=== PATIENT | female | born 1950 | race African-American/Black ===

== ENCOUNTER → 2020-09-23 11:45 | Outpatient (BNVA) | payer MEDICARE, MEDICAID, SELFPAY | PROVIDERS: PCP Internal Medicine; Referring Provider Internal Medicine; Visit Provider Internal Medicine | DX: E04.2 Nontoxic multinodular goiter (principal) | CPT/HCPCS: Q3014 ==

== ENCOUNTER → 2020-11-30 13:29 | Outpatient (BNVA) | payer MEDICARE, MEDICAID, SELFPAY | PROVIDERS: PCP Internal Medicine; Visit Provider Internal Medicine | DX: Z76.89 Persons encountering health services in other specified circumstances (principal) | CPT/HCPCS: Q3014 ==

== ENCOUNTER 2021-01-04 08:51 | Outpatient (REF) | payer MEDICARE, MEDICAID, SELFPAY ==
--- NOTE | ~2021-01-04 | US_ITS ---
EXAMINATION: US THYROID CLINICAL INFORMATION: Nontoxic multinodular goiter. COMPARISON: Ultrasound-guided thyroid biopsy 07/19/2018. Benign results per patient TECHNIQUE: Linear transducer paiz-scale and color Doppler examination with attention to the region of the thyroid. FINDINGS: SIZE: Measurements of the thyroid lobes and nodules are given in sagittal, anteroposterior and transverse dimensions respectively. Right Thyroid Lobe: 4.4 x 2.5 x 2.5 cm, volume 14.2 mL. Parenchyma: The gland echotexture is heterogeneous. Thyroid vascularity is increased. Left Thyroid Lobe: 4.3 x 1.5 x 1.3 cm, volume 4.3 mL. Parenchyma: The gland echotexture is homogeneous. Thyroid vascularity is normal. Isthmus: 0.3 cm in maximum AP dimension. Estimated total number of nodules greater than or equal to 1 cm: 1. Asset Protection Manager nodules are described as follows: 1. Location: Right mid/lower pole. Size: 3.0 x 2.1 x 2.4 cm, volume 7.9 mL. Nodule characteristics: Composition: Solid (2). Echogenicity: Isoechoic (1). Shape: Not taller than wide (0). Margins: Smooth (0). Echogenic Foci: None (0). ACR TI-RADS total points: 3 ACR TI-RADS category: 3 2. Location: Isthmus. Size: 0.8 x 0.4 x 0.7 cm, volume 0.1 mL. Nodule characteristics: Composition: Solid (2). Echogenicity: Hypoechoic (2). Shape: Not taller than wide (0). Margins: Smooth (0). Echogenic Foci: None (0). ACR TI-RADS total points: 4 ACR TI-RADS category: 4 NODES: No lymphadenopathy is seen in the tissue surrounding the thyroid gland. US/US thyroid IMPRESSION: 1. Solid nodule, right mid pole; previously biopsied in 2018 and was benign. Recommend continued follow up. 2. Spongiform nodule in the isthmus, likely benign, measuring 0.8 cm. 3. Small cystic areas with scattered tiny echogenic calcifications seen in both upper poles of the thyroid gland. Recommend continued ultrasound follow-up. ACR TI-RADS RECOMMENDATION REFERENCE: Ultrasound-guided fine-needle aspiration, followup ultrasound, no further follow up. * TR1 (0 point) and TR 2 (2 points): No FNA or follow up * TR3 (3 points): FNA if more than or equal to 2.5 cm in maximum dimension, followup ultrasound in 1, 3 and 5 years if 1.5 to 2.4 cm in maximum dimension. * TR4 (4-6 points): FNA if more than or equal to 1.5 cm in maximum dimension, followup ultrasound in 1, 2, 3 and 5 years if 1 to 1.4 cm in maximum dimension. * TR5 (more than or equal to 7 points): FNA if more than or equal to 1 cm in maximum dimension, followup ultrasound every year for 5 years if 0.5 to 0.9 cm in maximum dimension. * TR3, TR4 or TR5 nodules that are below the size threshold for follow up receive no follow up.
== END 2021-01-04 08:52 | disposition home or self-care (01) ==
LOC: HO.US 08:51
PROVIDERS: Visit Provider Internal Medicine
DX: E04.2 Nontoxic multinodular goiter (principal)
CPT/HCPCS: 76536

== ENCOUNTER → 2021-02-01 15:21 | Outpatient (BNVA) | payer MEDICARE, MEDICAID, SELFPAY | PROVIDERS: PCP Internal Medicine; Visit Provider Internal Medicine | DX: Z13.89 Encounter for screening for other disorder (principal) | CPT/HCPCS: Q3014 ==

== ENCOUNTER 2022-10-17 09:01 | Outpatient (REF) | payer MEDICARE, MEDICAID, SELFPAY ==
--- NOTE | ~2022-10-17 | US_ITS ---
EXAMINATION: US THYROID CLINICAL INFORMATION: Nontoxic multinodular goiter. COMPARISON: Ultrasound thyroid 01/04/2021. US-guided thyroid biopsy 07/19/2018. TECHNIQUE: Linear transducer grayscale and color Doppler examination with attention to the region of the thyroid. FINDINGS: SIZE: Measurements of the thyroid lobes and nodules are given in sagittal, anteroposterior and transverse dimensions respectively. Right Thyroid Lobe: 5.0 x 1.9 x 2.6 cm, volume 13.2 mL. Previously 4.4 x 2.5 x 2.5 cm, volume 14.2 mL. Parenchyma: The gland echotexture is heterogeneous. Thyroid vascularity is normal. Left Thyroid Lobe: 4.5 x 1.7 x 1.2 cm, volume 4.6 mL. Previously 4.3 x 1.5 x 1.3 cm, volume 4.3 mL. Parenchyma: The gland echotexture is heterogeneous. Thyroid vascularity is normal. Isthmus: 0.4 cm in maximum AP dimension. Previously 0.3 cm. Estimated total number of nodules greater than or equal to 1 cm: 2. Hair Or Beauty Salon Assistant nodules are described as follows: 1. Location: Right mid. Size: 2.7 x 1.9 x 2.9 cm, volume 7.9 mL. Previously: 3.0 x 2.1 x 2.4 cm, volume 7.9 mL. Nodule characteristics: Composition: Solid (2). Echogenicity: Isoechoic (1). Shape: Not taller than wide (0). Margins: Smooth (0). Echogenic Foci: None (0). ACR TI-RADS total points: 3 Previous: 3 ACR TI-RADS category: 3 Previous: 3 Significant change in size (>/= 20% in 2 dimensions and minimal increase of 2 mm or 50% or greater increase in volume): None. Change in features: None. Change in ACR TI-RADS risk category: No change. 2. Location: Isthmus. Size: 0.8 x 0.4 x 0.7 cm, volume 0.1 mL. Previously: 0.8 x 0.4 x 0.7 cm, volume 0.1 mL. Nodule characteristics: Composition: Solid (2). Echogenicity: Isoechoic (1). Shape: Not taller than wide (0). Margins: Smooth (0). Echogenic Foci: None (0). ACR TI-RADS total points: 3 Previous: 4 ACR TI-RADS category: 3 Previous: 4 Significant change in size (>/= 20% in 2 dimensions and minimal increase of 2 mm or 50% or greater increase in volume): None. Change in features: None. Change in ACR TI-RADS risk category: No change. 3. Location: Left mid. Size: 1.1 x 0.7 x 0.6 cm, volume 0.3 mL. Previously: Not documented on the previous study. Nodule characteristics: Composition: Spongiform (0). Echogenicity: Anechoic (0). Shape: Not taller than wide (0). Margins: Smooth (0). Echogenic Foci: None (0). ACR TI-RADS total points: 0 ACR TI-RADS category: 1 4. Location: Left superior. Size: 0.4 x 0.3 x 0.5 cm, volume 0.03 mL. Previously: Not documented on the previous study. Nodule characteristics: Composition: Cystic(0). ACR TI-RADS total points: 0 ACR TI-RADS category: 1 5. Location: Left superior. Size: 0.6 x 0.4 x 0.3 cm, volume 0.03 mL. Previously: Not documented on the previous study. Nodule characteristics: Composition: Cystic(0). ACR TI-RADS total points: 0 ACR TI-RADS category: 1 NODES: No lymphadenopathy is seen in the tissue surrounding the thyroid gland. US/US thyroid IMPRESSION: Heterogeneous thyroid gland with significantly enlarged left lobe. Large right midpole nodule is stable. The isthmus nodule is stable as well. There are a few new nodules in the left lobe. Recommend followup as per recommendations below. ACR TI-RADS RECOMMENDATION REFERENCE: Ultrasound-guided fine-needle aspiration, followup ultrasound, no further follow up. * TR1 (0 point) and TR 2 (2 points): No FNA or follow up. * TR3 (3 points): FNA if more than or equal to 2.5 cm in maximum dimension, followup ultrasound in 1, 3 and 5 years if 1.5 to 2.4 cm in maximum dimension. * TR4 (4-6 points): FNA if more than or equal to 1.5 cm in maximum dimension, followup ultrasound in 1, 2, 3 and 5 years if 1 to 1.4 cm in maximum dimension. * TR5 (more than or equal to 7 points): FNA if more than or equal to 1 cm in maximum dimension, followup ultrasound every year for 5 years if 0.5 to 0.9 cm in maximum dimension. * TR3, TR4 or TR5 nodules that are below the size threshold for followup receive no follow up.
[2022-10-17 10:57] LABS: Thyroid Stimulating Hormone 2.39 uIU/mL (0.32-4.0)
[2022-10-17 11:40] LABS: Free T4 (Free Thyroxine) 0.99 ng/dL (0.71-1.85)
== END 2022-10-17 09:02 | disposition home or self-care (01) ==
LOC: HO.US 09:01
PROVIDERS: Visit Provider Internal Medicine
DX: E04.2 Nontoxic multinodular goiter (principal)
CPT/HCPCS: 36415; 76536; 84439; 84443

== ENCOUNTER → 2022-10-26 09:01 | Outpatient (BNVA) | payer MEDICARE, MEDICAID, SELFPAY | PROVIDERS: PCP Internal Medicine; Visit Provider Internal Medicine | DX: E04.2 Nontoxic multinodular goiter (principal) | CPT/HCPCS: 99212 ==

== ENCOUNTER 2023-02-16 08:58 | Outpatient (REF) | payer MEDICARE, MEDICAID, SELFPAY ==
--- NOTE | 2023-02-16 09:24 | P.BOP_ITS ---
Brief Operative Note Date of Service: 02/16/23 Pre-op diagnosis: Multinodular Thyroid Procedure: EXAMINATION: US THYROID CLINICAL INFORMATION: Multinodular Thyroid COMPARISON: Prior TECHNIQUE: Linear transducer paiz-scale and color Doppler examination with attention to the region of the thyroid. FINDINGS: SIZE: Measurements of the thyroid lobes and nodules are given in sagittal, anteroposterior and transverse dimensions respectively. Right Thyroid Lobe: 4.4 x 2.2 x 2.7 cm, volume 13.7 mL. Parenchyma: The gland echotexture is heterogenous. Thyroid vascularity is normal. Left Thyroid Lobe: 3.8 x 1.4 x 1.4 cm, volume 3.9 mL. Parenchyma: The gland echotexture is heterogenous. Thyroid vascularity is normal. Isthmus: 0.5 cm in maximum AP dimension. RIGHT THYROID LOBE: There is one nodule. 1) Right Mid Pole:2.7 x 2.7 x 1.8 cm Predominantly solid, isoechoic. Smooth margins. No microcalcifications. LEFT THYROID LOBE: There are 0 nodules. The left lobe appears heterogenous, and what was read as a new 1.1 cm left lobe nodule on her prior ultrasound is solely an area of heterogeneity. Isthmus: 1) 0.7 cm Isoechoic to slightly hypoechoic, predominantly solid. Smooth margins with no microcalcifications. NODES: No lymphadenopathy is seen in the tissue surrounding the thyroid gland. Surgeon: Odalys Kasper, DO Was an Shipping And Receiving Weigher used for this Procedure?: No Estimated blood loss (mL): 0
== END 2023-02-16 08:59 | disposition home or self-care (01) ==
LOC: HO.US 08:58
PROVIDERS: PCP Internal Medicine; Visit Provider Internal Medicine
DX: E04.2 Nontoxic multinodular goiter (principal)
CPT/HCPCS: 76536

== ENCOUNTER → 2023-03-02 12:26 | Outpatient (BNVA) | payer MEDICARE, MEDICAID, SELFPAY | PROVIDERS: PCP Family Medicine; Visit Provider Internal Medicine | DX: E04.2 Nontoxic multinodular goiter (principal) | CPT/HCPCS: 99212 ==

== ENCOUNTER 2024-02-20 10:32 | Outpatient (REF) | payer MEDICARE, MEDICAID, SELFPAY ==
--- NOTE | ~2024-02-20 | US_ITS ---
EXAMINATION: US THYROID CLINICAL INFORMATION: Nontoxic multinodular goiter. COMPARISON: Ultrasound soft tissue head/neck thyroid dated 10/17/2022 and 01/04/2021. TECHNIQUE: Linear transducer grayscale and color Doppler examination with attention to the region of the thyroid. FINDINGS: SIZE: Measurements of the thyroid lobes and nodules are given in sagittal, anteroposterior and transverse dimensions respectively. Right Thyroid Lobe: 5.0 x 2.1 x 2.5 cm, volume 13.7 mL. Previously 5.0 x 1.9 x 2.6 cm, volume 13.2 mL. Parenchyma: The gland echotexture is homogeneous. Thyroid vascularity is normal. Left Thyroid Lobe: 3.9 x 1.5 x 1.2 cm, volume 3.6 mL. Previously 4.5 x 1.7 x 1.2 cm, volume 4.6 mL. Parenchyma: The gland echotexture is homogeneous. Thyroid vascularity is normal. Isthmus: 0.6 cm in maximum AP dimension. Previously 0.4 cm. Estimated total number of nodules greater than or equal to 1 cm: 2. Artillery Meteorological Man nodules are described as follows: 1. Location: Left isthmus. Size: 0.9 x 0.4 x 0.8 cm, volume 0.15 mL. Previously: 0.8 x 0.4 x 0.7 cm, volume 0.1 mL. Nodule characteristics: Composition: Solid (2). Echogenicity: Hypoechoic (2). Shape: Not taller than wide (0). Margins: Smooth (0). Echogenic Foci: Macrocalcifications (1). ACR TI-RADS total points: 5. Previous: 3. ACR TI-RADS category: 4. Previous: 3. Significant change in size (>/= 20% in 2 dimensions and minimal increase of 2 mm or 50% or greater increase in volume): Yes Change in features: Yes Change in ACR TI-RADS risk category: Yes 2. Location: Right mid/inferior. Size: 2.4 x 1.8 x 2.8 cm, volume 6.6 mL. Previously: 2.7 x 1.9 x 2.9 cm, volume 7.9 mL. Nodule characteristics: Composition: Solid/almost completely solid (2). Echogenicity: Isoechoic (1). Shape: Not taller than wide (0). Margins: Smooth (0). Echogenic Foci: None (0). ACR TI-RADS total points: 3. Previous: 3. ACR TI-RADS category: 3. Previous: 3. Significant change in size (>/= 20% in 2 dimensions and minimal increase of 2 mm or 50% or greater increase in volume): No Change in features: No Change in ACR TI-RADS risk category: No 3. Location: Left mid. Size: 1.0 x 1.0 x 0.8 cm, volume 0.4 mL. Previously: 1.1 x 0.7 x 0.6 cm, volume 0.3 mL. Nodule characteristics: Composition: Spongiform (0). Echogenicity: Anechoic (0). Shape: Not taller than wide (0). Margins: Smooth (0). Echogenic Foci: None (0). ACR TI-RADS total points: 0. Previous: 0. ACR TI-RADS category: 1. Previous: 1. Significant change in size (>/= 20% in 2 dimensions and minimal increase of 2 mm or 50% or greater increase in volume): No Change in features: No Change in ACR TI-RADS risk category: No NODES: No lymphadenopathy is seen in the tissue surrounding the thyroid gland. US/US thyroid IMPRESSION: 2.8 cm right [id number] TR3 thyroid nodule has not increased in size and meets criteria for biopsy. Correlation with prior biopsy results recommended to determine further management. ACR TI-RADS RECOMMENDATION REFERENCE: Ultrasound-guided fine-needle aspiration, follow up ultrasound, no further followup. * TR1 (0 point) and TR2 (2 points): No FNA or followup. * TR3 (3 points): FNA if more than or equal to 2.5 cm in maximum dimension, follow up ultrasound in 1, 3 and 5 years if 1.5 to 2.4 cm in maximum dimension. * TR4 (4-6 points): FNA if more than or equal to 1.5 cm in maximum dimension, follow up ultrasound in 1, 2, 3 and 5 years if 1 to 1.4 cm in maximum dimension. * TR5 (more than or equal to 7 points): FNA if more than or equal to 1 cm in maximum dimension, follow up ultrasound every year for 5 years if 0.5 to 0.9 cm in maximum dimension. * TR3, TR4 or TR5 nodules that are below the size threshold for follow up receive no followup.
== END 2024-02-20 10:33 | disposition home or self-care (01) ==
LOC: HO.US 10:32
PROVIDERS: PCP Family Medicine; Visit Provider Internal Medicine Endocrinology, Diabetes & Metabolism
DX: E04.2 Nontoxic multinodular goiter (principal)
CPT/HCPCS: 76536

== ENCOUNTER 2024-09-17 12:34 | Outpatient (AMB) | payer MEDICARE, MEDICAID, SELFPAY ==
[2024-09-17 12:34] VITALS: BP 118/78; PULSE 84; BMI 27.2
--- NOTE | 2024-09-17 12:34 | A.OFFVIS_ITS ---
Vital Signs 09/17/24 12:34 Height 5 ft 2 in Weight 148 lb 12.992 oz BMI 27.2 BP 118/78 Blood Pressure Location Rt brachial Position Sitting Pulse 84 Pulse Source Palpation Intake Visit Reasons: Thyroid Nodule-confirmed Intake Note: Patient present today for Thyroid Nodule office visit. 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 Accompanied by: Self / Same As Patient Allergies No Known Allergies Allergy (Verified 09/17/24 12:37) Medication List - Last Reconciled 09/17/24 by Tamara Rubio MD aspirin (Adult Low Dose Aspirin) 81 mg PO DAILY atorvastatin 80 mg PO DAILY blood sugar diagnostic As directed bupropion HCl XL 150 mg PO DAILY carvedilol 25 mg PO BID clopidogrel 75 mg PO DAILY docusate sodium 100 mg PO DAILY dulaglutide 0.75 mg subcut QWEEK folic acid 0.4 mg PO DAILY hydralazine 50 mg PO TID ibuprofen 600 mg PO TID PRN lancets As directed metformin ER 500 mg PO BID pantoprazole 40 mg PO DAILY prednisone 20 mg PO BID HPI Comments Details: 73 YO F who is seen in F/U for multinodular thyroid. Prior HPI She was previously followed by Sandra Lowe, and did have a FNA completed of a R mid to lower pole 2.7 cm nodule 07/19/18 with benign cytology. She was then followed by Dr. Cm. Repeat US October 2022 reveals a new nodule measuring 1.1 cm in the LMP. Dr. Cm repeated her US herself 02/16/2023 which revealed her thyroid to be unchanged from prior, with redemonstration of a RMP 2.7 cm thyroid nodule. What was measured as a 1.1 cm nodule within the LMP was solely an area of heterogeneity. Most recent thyroid ultrasound done in February 2024, I reviewed the images myself which shows stable size of the right 2.8 cm mid lobe nodule, as well as stable size of the left mid lobe 1.1 cm nodule. Other subcentimeter nodules also remained stable. She reports feeling well today and has no complaints. Denies any symptoms of hyper or hypothyroidism. Denies any history of head or neck irradiation. Denies any family history of thyroid cancer. Physical exam General: sitting comfortably in no acute distress HEENT: normocephalic/atraumatic, moist oral mucosa Neck: supple, symmetrical, palpable 2 cm right sided nodule Cardiac: normal heart sounds Pulm: normal breath sounds B/L, no added breath sounds Abd: not distended, no tenderness Extremities: no edema, no signs of myxedema Neuro: AAO x3, Speech: normal, no facial droop, moving all 4 extremities Imaging US THYROID 02/20/24 CLINICAL INFORMATION: Nontoxic multinodular goiter. COMPARISON: Ultrasound soft tissue head/neck thyroid dated 10/17/2022 and 01/04/2021. TECHNIQUE: Linear transducer grayscale and color Doppler examination with attention to the region of the thyroid. FINDINGS: SIZE: Measurements of the thyroid lobes and nodules are given in sagittal, anteroposterior and transverse dimensions respectively. Right Thyroid Lobe: 5.0 x 2.1 x 2.5 cm, volume 13.7 mL. Previously 5.0 x 1.9 x 2.6 cm, volume 13.2 mL. Parenchyma: The gland echotexture is homogeneous. Thyroid vascularity is normal. Left Thyroid Lobe: 3.9 x 1.5 x 1.2 cm, volume 3.6 mL. Previously 4.5 x 1.7 x 1.2 cm, volume 4.6 mL. Parenchyma: The gland echotexture is homogeneous. Thyroid vascularity is normal. Isthmus: 0.6 cm in maximum AP dimension. Previously 0.4 cm. Estimated total number of nodules greater than or equal to 1 cm: 2. Green Feed Attendant nodules are described as follows: 1. Location: Left isthmus. Size: 0.9 x 0.4 x 0.8 cm, volume 0.15 mL. Previously: 0.8 x 0.4 x 0.7 cm, volume 0.1 mL. Nodule characteristics: Composition: Solid (2). Echogenicity: Hypoechoic (2). Shape: Not taller than wide (0). Margins: Smooth (0). Echogenic Foci: Macrocalcifications (1). ACR TI-RADS total points: 5. Previous: 3. ACR TI-RADS category: 4. Previous: 3. Significant change in size (>/= 20% in 2 dimensions and minimal increase of 2 mm or 50% or greater increase in volume): Yes Change in features: Yes Change in ACR TI-RADS risk category: Yes 2. Location: Right mid/inferior. Size: 2.4 x 1.8 x 2.8 cm, volume 6.6 mL. Previously: 2.7 x 1.9 x 2.9 cm, volume 7.9 mL. Nodule characteristics: Composition: Solid/almost completely solid (2). Echogenicity: Isoechoic (1). Shape: Not taller than wide (0). Margins: Smooth (0). Echogenic Foci: None (0). ACR TI-RADS total points: 3. Previous: 3. ACR TI-RADS category: 3. Previous: 3. Significant change in size (>/= 20% in 2 dimensions and minimal increase of 2 mm or 50% or greater increase in volume): No Change in features: No Change in ACR TI-RADS risk category: No 3. Location: Left mid. Size: 1.0 x 1.0 x 0.8 cm, volume 0.4 mL. Previously: 1.1 x 0.7 x 0.6 cm, volume 0.3 mL. Nodule characteristics: Composition: Spongiform (0). Echogenicity: Anechoic (0). Shape: Not taller than wide (0). Margins: Smooth (0). Echogenic Foci: None (0). ACR TI-RADS total points: 0. Previous: 0. ACR TI-RADS category: 1. Previous: 1. Significant change in size (>/= 20% in 2 dimensions and minimal increase of 2 mm or 50% or greater increase in volume): No Change in features: No Change in ACR TI-RADS risk category: No NODES: No lymphadenopathy is seen in the tissue surrounding the thyroid gland. US/US thyroid IMPRESSION: 2.8 cm right [id number] TR3 thyroid nodule has not increased in size and meets criteria for biopsy. Correlation with prior biopsy results recommended to determine further management. Thyroid US: 10/17/2022 Right Thyroid Lobe: 5.0 x 1.9 x 2.6 cm, volume 13.2 mL. Previously 4.4 x 2.5 x 2.5 cm, volume 14.2 mL. Parenchyma: The gland echotexture is heterogeneous. Thyroid vascularity is normal. Left Thyroid Lobe: 4.5 x 1.7 x 1.2 cm, volume 4.6 mL. Previously 4.3 x 1.5 x 1.3 cm, volume 4.3 mL. Parenchyma: The gland echotexture is heterogeneous. Thyroid vascularity is normal. Isthmus: 0.4 cm in maximum AP dimension. Previously 0.3 cm. Estimated total number of nodules greater than or equal to 1 cm: 2. Green Feed Attendant nodules are described as follows: 1.? Location: Right mid. ?? ? Size: 2.7 x 1.9 x 2.9 cm, volume 7.9 mL. ?? ? Previously: 3.0 x 2.1 x 2.4 cm, volume 7.9 mL. ?? ? Nodule characteristics: ?? ? Composition: Solid (2). ?? ? Echogenicity: Isoechoic (1). ?? ? Shape: Not taller than wide (0). ?? ? Margins: Smooth (0). ?? ? Echogenic Foci: None (0). ?? ? ACR TI-RADS total points: 3 Previous: 3 ?? ? ACR TI-RADS category: 3 Previous: 3 ? Significant change in size (>/= 20% in 2 dimensions and minimal increase of 2 mm or 50% or greater increase in volume): None. ?? ? Change in features: None. ?? ? Change in ACR TI-RADS risk category: No change. 2.? Location: Isthmus. ?? ? Size: 0.8 x 0.4 x 0.7 cm, volume 0.1 mL. ?? ? Previously: 0.8 x 0.4 x 0.7 cm, volume 0.1 mL. ?? ? Nodule characteristics: ?? ? Composition: Solid (2). ?? ? Echogenicity: Isoechoic (1). ?? ? Shape: Not taller than wide (0). ?? ? Margins: Smooth (0). ?? ? Echogenic Foci: None (0).? ACR TI-RADS total points: 3 Previous: 4 ?? ? ACR TI-RADS category: 3 Previous: 4 ? Significant change in size (>/= 20% in 2 dimensions and minimal increase of 2 mm or 50% or greater increase in volume): None. ?? ? Change in features: None. ?? ? Change in ACR TI-RADS risk category: No change. 3.? Location: Left mid. ?? ? Size: 1.1 x 0.7 x 0.6 cm, volume 0.3 mL. ?? ? Previously: Not documented on the previous study. ?? ? Nodule characteristics: ?? ? Composition: Spongiform (0). ?? ? Echogenicity: Anechoic (0). ?? ? Shape: Not taller than wide (0). ?? ? Margins: Smooth (0). ?? ? Echogenic Foci: None (0).? ACR TI-RADS total points: 0 ?? ? ACR TI-RADS category: 1 4.? Location: Left superior. ?? ? Size: 0.4 x 0.3 x 0.5 cm, volume 0.03 mL. ?? ? Previously: Not documented on the previous study. ?? ? Nodule characteristics: ?? ? Composition: Cystic(0). ?? ? ACR TI-RADS total points: 0 ?? ? ACR TI-RADS category: 1 5.? Location: Left superior. ?? ? Size: 0.6 x 0.4 x 0.3 cm, volume 0.03 mL. ?? ? Previously: Not documented on the previous study. ?? ? Nodule characteristics: ?? ? Composition: Cystic(0). ?? ? ACR TI-RADS total points: 0 ?? ? ACR TI-RADS category: 1 NODES: No lymphadenopathy is seen in the tissue surrounding the thyroid gland. US THYROID 01/04/21 CLINICAL INFORMATION: Nontoxic multinodular goiter. COMPARISON: Ultrasound-guided thyroid biopsy 07/19/2018. Benign results per patient TECHNIQUE: Linear transducer paiz-scale and color Doppler examination with attention to the region of the thyroid. FINDINGS: SIZE: Measurements of the thyroid lobes and nodules are given in sagittal, anteroposterior and transverse dimensions respectively. Right Thyroid Lobe: 4.4 x 2.5 x 2.5 cm, volume 14.2 mL. Parenchyma: The gland echotexture is heterogeneous. Thyroid vascularity is increased. Left Thyroid Lobe: 4.3 x 1.5 x 1.3 cm, volume 4.3 mL. Parenchyma: The gland echotexture is homogeneous. Thyroid vascularity is normal. Isthmus: 0.3 cm in maximum AP dimension. Estimated total number of nodules greater than or equal to 1 cm: 1. Green Feed Attendant nodules are described as follows: 1. Location: Right mid/lower pole. Size: 3.0 x 2.1 x 2.4 cm, volume 7.9 mL. Nodule characteristics: Composition: Solid (2). Echogenicity: Isoechoic (1). Shape: Not taller than wide (0). Margins: Smooth (0). Echogenic Foci: None (0). ACR TI-RADS total points: 3 ACR TI-RADS category: 3 2. Location: Isthmus. Size: 0.8 x 0.4 x 0.7 cm, volume 0.1 mL. Nodule characteristics: Composition: Solid (2). Echogenicity: Hypoechoic (2). Shape: Not taller than wide (0). Margins: Smooth (0). Echogenic Foci: None (0). ACR TI-RADS total points: 4 ACR TI-RADS category: 4 NODES: No lymphadenopathy is seen in the tissue surrounding the thyroid gland. US/US thyroid IMPRESSION: 1. Solid nodule, right mid pole; previously biopsied in 2018 and was benign. Recommend continued follow up. 2. Spongiform nodule in the isthmus, likely benign, measuring 0.8 cm. 3. Small cystic areas with scattered tiny echogenic calcifications seen in both upper poles of the thyroid gland. Recommend continued ultrasound follow-up. Laboratory Tests 10/17/22 09:42 TSH 2.39 Free T4 0.99 PFSH Medical History CKD (chronic kidney disease) stage 3, GFR 30-59 ml/min HTN (hypertension) T2DM (type 2 diabetes mellitus) Multinodular thyroid Surgical History Hx of colonoscopy Hx of tubal ligation Family History Father Hypertension Mother Hypertension Social History (Reviewed 09/17/24 @ 12:37 by JORGE LUIS Porter Household Members: Family Alcohol intake: never Physical Exam Vital Signs: Last Vital Signs Pulse 84 09/17/24 12:34 BP 118/78 09/17/24 12:34 BMI result Body Mass Index 27.2 Assessment & Plan Assessment & Plan (1) Multinodular thyroid: Code(s): E04.2 - Nontoxic multinodular goiter Category: Medical Plan: Patient with a NTMNG. She previously underwent FNA biopsy of her RMP 2.7 cm thyroid nodule with benign cytology in 2018.. She has had repeat ultrasounds consecutively every year from 2020 up until 2023. I reviewed all of these personally in its shows stable size of her nodules. Her dominant right lobe nodule remains stable in size as well as the other smaller ones remained stable in size. At this point she has had these nodules which have remained stable in size including the right dominant nodule which has had benign cytology in the past in 2018 over the last 6 years. Given stability over greater than 5 years, no need for further ultrasound unless patient has any clinical changes. I reviewed with the patient compressive symptoms associated with thyroid nodules and if she has any of those she can in for her primary care physician and be referred back to us. For now no need for further follow up with the endocrinology with regards to her thyroid nodules. She has not had recent thyroid function tests in the last 2 years, we will repeat those now. She can have thyroid function tests repeated every 1-2 years with her primary care physician. Patient verbalized understanding and is in agreement with the plan. Plan see above Orders: Orders Free T4 (Free Thyroxine) Today E04.2 - Nontoxic multinodular goiter Thyroid Stimulating Hormone Today E04.2 - Nontoxic multinodular goiter Patient Instructions: Your thyroid nodules have remained stable for 6 years, I reviewed your US from February 2024 myself , and all nodules are stable. Given stability over >5 years no need for further imaging. If you start having trouble swallowing, choking sensation, pressure in your neck ,changes in voice, let your primary care physician know and they can refer you back to us. For now no follow up with me needed for thyroid. Do blood work. Your primary care can also check your thyroid blood work every 1-2 years. Coding Level of Care Code Est Pt Level 3 (60720) Diagnoses Multinodular thyroid E04.2
== END 2024-09-17 12:58 | disposition home or self-care (01) ==
PROVIDERS: PCP Family Medicine; Visit Provider Student in an Organized Health Care Education/Training Program
DX: E04.2 Nontoxic multinodular goiter (principal)
CPT/HCPCS: 99213

== ENCOUNTER → 2024-09-17 12:34 | Outpatient (BNVA) | payer MEDICARE, MEDICAID, SELFPAY | PROVIDERS: PCP Family Medicine; Visit Provider Student in an Organized Health Care Education/Training Program | DX: E04.2 Nontoxic multinodular goiter (principal) | CPT/HCPCS: 99212 ==